=== PATIENT | female | born 1925 | race Caucasian/White ===

== ENCOUNTER 2017-02-18 07:56 | Inpatient (IN) | payer MEDICARE, BC ==
[~2017-02-18] VITALS: Ht 157.5 cm; Wt 49.6 kg
[2017-02-18] VITALS (11 sets, daily range): BP systolic 123–157; BP diastolic 68–93; PULSE 60–95; RESP 14–20; TEMP 96.4–98.1; O2SAT 91–99
[~2017-02-18 07:56] MED LIST: ALBU8I INH; BACL10TA PO; ESTR.3 PO; HYDR12.56 PO; KCL20 PO; LORTA5 PO; LYRI50CA2 PO; OXYC60TA8 PO; PROT40TA PO; ZITH250T PO
--- NOTE | 2017-02-18 08:24 | PD ---
HPI Chief Complaint: Respiratory Symptoms Time Seen by Provider: 08:11 Travel History International Travel<30 days: No Contact w/Intl Traveler<30days: No Traveled to known affect area: No History of Present Illness HPI 89-year-old female with history of COPD, CHF, on home O2 at night, brought in by her blender machine operator for evaluation of shortness of breath, "not feeling right," and restlessness. Symptoms of been going on for last 3-4 days. The patient was diagnosed with a UTI and was initially on Bactrim, however was switched to amoxicillin after her primary care physician discovered that the bacteria was resistant to Bactrim. According to the blender machine operator the patient has had little to eat over the last several days. She has been drinking plenty of fluids. Shortest of breath is at rest as well as on exertion. She denies chest pain. She is not coughing. No hemoptysis. No history of DVT or PE. Two of her friends/relatives were diagnosed with pneumonia last week, and this is a concern for the caregiver. She has not had a fever. She denies abdominal pain , nausea, vomiting, or diarrhea. Caregiver also endorses that her daughter is out of town, and this may be causing the patient some anxiety. PFSH Past Medical History Arthritis: Yes Asthma: No Autoimmune Disease: No Anxiety: No Depression: No Heart Rhythm Problems: No Cancer: No Cardiovascular Problems: Yes High Cholesterol: No Chemotherapy: No Chest Pain: No Congestive Heart Failure: Yes COPD: No Cerebrovascular Accident: No Diabetes: No Diminished Hearing: No Endocrine: No GERD: No Glaucoma: No Genitourinary: Yes Headaches: No Hepatitis: No Hiatal Hernia: No Hypertension: Yes Immune Disorder: No Kidney Stones: Yes Musculoskeletal: Yes (OSTEOPOROSIS) Neurologic: No Psychiatric: No Reproductive: No Respiratory: Yes Immunizations Current: Yes Migraines: No Myocardial Infarction: No Radiation Therapy: No Renal Failure: No Seizures: No Sickle Cell Disease: No Sleep Apnea: No Thyroid Disease: No Ulcer: No PNEUMOCCOCAL Vaccine (Year): 1 Menopausal: Yes Past Surgical History Abdominal Surgery: Yes (HYSTERECTOMY) AICD: No Appendectomy: Yes Arteriovenous Shunt: No Cardiac Surgery: No Cholecystectomy: Yes Ear Surgery: No Endocrine Surgery: No Eye Surgery: Yes (CATARACT REMOVAL) Genitourinary Surgery: Yes (KIDNEY STONE REMOVAL AND STENT ON 06/15/2010) Gynecologic Surgery: Yes Hysterectomy: Yes Insulin Pump: No Joint Replacement: Yes (RT KNEE 2004, RT HIP 2003, FEMUR ZACARIAS 2005, LEFT THUMB IMPLANT) Oral Surgery: No Pacemaker: No Thoracic Surgery: No Other Surgery: Yes (RT KNEE/LEFT FEMUR /RT HIP REPLACEMENT) Social History Alcohol Use: No Tobacco Use: No (QUIT 20 YEARS ) Substance Use: No Allergies-Medications (Allergen,Severity, Reaction): Coded Allergies: Cipro (Verified Allergy, Severe, 02/18/17) Amoxicillin (Verified Allergy, Unknown, 02/18/17) Bactrim (Verified Allergy, Unknown, 02/18/17) Levaquin (Verified Allergy, Unknown, 02/18/17) Macrobid (Verified Allergy, Unknown, 02/18/17) Reported Meds & Prescriptions Reported Meds & Active Scripts Active Reported [Cre0n] 48,000 PO AC LUNCH Breo Ellipta Inh (Fluticasone/Vilanterol) 100-25 Mcg/Act Inh 1 Puff INH DAILY Use daily at the same time. [Albuterol/Ipratrap] Lasix (Furosemide) 40 Mg Tab 40 Mg PO DAILY Amoxicillin 500 Mg Cap 500 Mg PO TID Oxycontin (Oxycodone HCl) 10 Mg Tab 10 Mg PO Q12HR Pantoprazole (Pantoprazole Sodium) 20 Mg Tab 20 Mg PO DAILY Cymbalta DR (Duloxetine HCl) 30 Mg Capdr 30 Mg PO DAILY Potassium Chloride ER (Potassium Chloride) 20 Meq Tab 20 Meq PO DAILY Calcium 500 +D (Calcium Carbonate-Cholecalciferol) 500-400 Mg-Unit Tab 1 Tab PO BID [Oxygen] PRN HS Baclofen 10 Mg Tab 10 Mg PO BID PRN Premarin (Estrogens Conjugated) 0.3 Mg Tab 0.3 Mg PO DAILY Review of Systems Except as stated in HPI: all other systems reviewed are Neg Physical Exam Narrative GENERAL: Well-developed, well-nourished, awake, alert, comfortable, no acute distress. SKIN: Focused skin assessment warm/dry. No rash. No pallor. HEAD: Atraumatic. Normocephalic. EYES: Pupils equal and round. No scleral icterus. No injection or drainage. ENT: Mucous membranes pink and moist. NECK: Trachea midline. No JVD. CARDIOVASCULAR: Regular rate and rhythm. RESPIRATORY: No accessory muscle use. Clear to auscultation. Breath sounds equal bilaterally. GASTROINTESTINAL: Abdomen soft, non-tender, nondistended. MUSCULOSKELETAL: No obvious deformities. No clubbing. No cyanosis. No edema. NEUROLOGICAL: Awake and alert. No obvious cranial nerve deficits. Motor grossly within normal limits. Normal speech. PSYCHIATRIC: Appropriate mood and affect; insight and judgment normal. Data Data Last Documented VS Vital Signs Date Time Temp Pulse Resp B/P Pulse Ox O2 Delivery O2 Flow Rate FiO2 02/18/17 09:06 70 99 Nasal Cannula 2 02/18/17 08:46 18 124/68 02/18/17 08:19 98.0 Orders Electrocardiogram (02/18/17 08:17) Ckmb (Isoenzyme) Profile (02/18/17 08:17) Complete Blood Count With Diff (02/18/17 08:17) Comprehensive Metabolic Panel (02/18/17 08:17) Magnesium (Mg) (02/18/17 08:17) Prothrombin Time / Inr (Pt) (02/18/17 08:17) Act Partial Throm Time (Ptt) (02/18/17 08:17) Troponin I (02/18/17 08:17) Chest, Single Ap (02/18/17 08:17) Ecg Monitoring (02/18/17 08:17) Iv Access Insert/Monitor (02/18/17 08:17) Oximetry (02/18/17 08:17) Sodium Chloride 0.9% Flush (Ns Flush) (02/18/17 08:30) B-Type Natriuretic Peptide (02/18/17 08:17) Urinalysis - C+S If Indicated (02/18/17 08:17) Labs Laboratory Tests Test 02/18/17 08:26 White Blood Count 13.3 TH/MM3 Red Blood Count 4.51 MIL/MM3 Hemoglobin 12.2 GM/DL Hematocrit 37.4 % Mean Corpuscular Volume 82.7 FL Mean Corpuscular Hemoglobin 27.0 PG Mean Corpuscular Hemoglobin 32.7 % Concent Red Cell Distribution Width 14.8 % Platelet Count 345 TH/MM3 Mean Platelet Volume 6.7 FL Neutrophils (%) (Auto) 86.7 % Lymphocytes (%) (Auto) 7.2 % Monocytes (%) (Auto) 3.9 % Eosinophils (%) (Auto) 0.5 % Basophils (%) (Auto) 1.7 % Neutrophils # (Auto) 11.5 TH/MM3 Lymphocytes # (Auto) 1.0 TH/MM3 Monocytes # (Auto) 0.5 TH/MM3 Eosinophils # (Auto) 0.1 TH/MM3 Basophils # (Auto) 0.2 TH/MM3 CBC Comment DIFF FINAL Differential Comment Prothrombin Time 10.2 SEC Prothromb Time International 0.9 RATIO Ratio Activated Partial 30.2 SEC Thromboplast Time Sodium Level 137 MEQ/L Potassium Level 3.7 MEQ/L Chloride Level 102 MEQ/L Carbon Dioxide Level 18.7 MEQ/L Anion Gap 16 MEQ/L Blood Urea Nitrogen 34 MG/DL Creatinine 1.90 MG/DL Estimat Glomerular Filtration 25 ML/MIN Rate Random Glucose 119 MG/DL Calcium Level 9.3 MG/DL Magnesium Level 1.8 MG/DL Total Bilirubin 0.2 MG/DL Aspartate Amino Transf 25 U/L (AST/SGOT) Alanine Aminotransferase 17 U/L (ALT/SGPT) Alkaline Phosphatase 72 U/L Total Creatine Kinase 72 U/L Troponin I LESS THAN 0.02 NG/ML B-Type Natriuretic Peptide 61 PG/ML Total Protein 8.0 GM/DL Albumin 3.7 GM/DL [facility] Medical Decision Making Medical Screen Exam Complete: Yes Emergency Medical Condition: Yes Interpretation(s) EKG: Sinus, rate 75, leftward axis, normal intervals, no acute ischemic abnormality. Differential Diagnosis Pneumonia, dehydration, metabolic abnormality, anemia, pulmonary edema, ACS, anxiety, PE less likely Narrative Course Vital signs show heart rate 78, blood pressure 123/79, pulse ox 99% on room air , oral temp of 98F. CBC shows WBC 13.3, hemoglobin 12.2, hematocrit 37.4, platelets 345, neutrophils 87%. CMP is remarkable for bicarbonate 18.7, anion gap 16, BUN 34, creatinine 1.9, GFR 25. This is worse than previous labs from 3 years ago when her creatinine was 0.7. Cardiac enzymes are negative. BNP is 61. Chest x-ray shows no acute cardiopulmonary disease. Patient and the patient's blender machine operator were made aware of all findings. Because I am not able to determine if her renal insufficiency is acute or not, the patient will be admitted for overnight observation for IV hydration. Patient's blender machine operator is relieved that the patient will be admitted for overnight observation and she is very concerned about the patient's current well-being. Case discussed with [place] hospitalist Dr. Peguero who is covering for the patient's primary care physician Dr. Crawford. The patient will be admitted to their service under Dr. Gomez. Diagnosis Primary Impression: Renal insufficiency Additional Impression: Failure to thrive in adult Admitting Information Admitting Physician Requests: Observation Gustavo Sal MD Feb 18, 2017 08:24
[2017-02-18] MEDS ORDERED: SODIUM CHLORIDE 0.9% FLUSH 10 ML FLUSH IVF PRN (08:30)
[2017-02-18] MEDS ORDERED: BACL10TA PO (08:32)
[2017-02-18] MEDS ORDERED: ESTR.3 PO (08:32)
[2017-02-18] MEDS ORDERED: OXYGEN (08:32)
[2017-02-18 08:33] LABS: AUTOMATED NEUTROPHIL # 11.5 TH/MM3 (1.8-7.7); BASOPHIL # 0.2 TH/MM3 (0-0.2); BASOPHIL % 1.7 % (0.0-2.0); EOSINOPHIL # 0.1 TH/MM3 (0-0.4); EOSINOPHIL % 0.5 % (0.0-4.0); HEMATOCRIT 37.4 % (35.0-46.0); LYMPH % 7.2 % (9.0-44.0); MEAN CELL VOLUME 82.7 FL (80.0-100.0); MEAN CORPUSCULAR HGB CONC 32.7 % (32.0-36.0); MONO % 3.9 % (0.0-8.0); NEUT % 86.7 % (16.0-70.0); PLATELET COUNT 345 TH/MM3 (150-450); RED BLOOD COUNT 4.51 MIL/MM3 (4.00-5.30); RED CELL DISTRIBUTION WIDTH 14.8 % (11.6-17.2); WHITE BLOOD COUNT 13.3 TH/MM3 (4.0-11.0)
[2017-02-18 08:36] LABS: HEMO FLAGS DIFF FINAL
[2017-02-18 08:42] LABS: CHLORIDE 102 MEQ/L (98-107); POTASSIUM 3.7 MEQ/L (3.5-5.1); SODIUM (NA) 137 MEQ/L (136-145)
[2017-02-18] MEDS ORDERED: AMOX500C PO (08:44)
[2017-02-18] MEDS ORDERED: OXYC-259 PO (08:44)
[2017-02-18] MEDS ORDERED: CALC1TAB12 PO (08:44)
[2017-02-18] MEDS ORDERED: CREON (08:44)
[2017-02-18] MEDS ORDERED: ALBUTEROL (08:44)
[2017-02-18] MEDS ORDERED: IPRATROPIUM (08:44)
[2017-02-18] MEDS ORDERED: FLUT1INH INH (08:44)
[2017-02-18] MEDS ORDERED: CYMB30CA PO (08:44)
[2017-02-18] MEDS ORDERED: POTA-163 PO (08:44)
[2017-02-18] MEDS ORDERED: PANT20TA2 PO (08:44)
[2017-02-18] MEDS ORDERED: FURO1TAB60 PO (08:44)
[2017-02-18 08:45] LABS: APTT (PATIENT) 30.2 SEC (24.3-30.1); INTERNATIONAL NORMALIZED RATIO 0.9 RATIO; PROTHROMBIN TIME - PATIENT 10.2 SEC (9.8-11.6)
[2017-02-18 08:46] LABS: ANION GAP 16 MEQ/L (5-15); BICARBONATE 18.7 MEQ/L (21.0-32.0); BLOOD UREA NITROGEN 34 MG/DL (7-18); MAGNESIUM 1.8 MG/DL (1.5-2.5)
[2017-02-18 08:49] LABS: ALT (GPT) 17 U/L (10-53); AST (GOT) 25 U/L (15-37); GLOMERULAR FILTRATION RATE 25 ML/MIN (>89)
[2017-02-18 08:50] LABS: TOTAL BILIRUBIN ADULT 0.2 MG/DL (0.2-1.0)
[2017-02-18 08:52] LABS: ALKALINE PHOSPHATASE 72 U/L (45-117)
--- NOTE | 2017-02-18 08:53 | RADHPO ---
EXAM DATE/TIME: 02/18/2017 08:20 [facility] COMPARISON: CHEST SINGLE AP, December 08, 2013, 20:05. MRI THORACIC SPINE W/O CONTRAST, December 09, 2013, 11:[address] PULMONARY ANGIOGRAM, April 01, 2014, 16:34. CHEST SINGLE AP, March 30, 2014, 10:26. CHEST SINGL E AP, April 01, 2014, 10:36. INDICATIONS : Shortness of breath. MEDICAL HISTORY : Chronic obstructive pulmonary disease. Congestive heart failure. SURGICAL HISTORY : None. ENCOUNTER: Initial ACUITY: 1 day PAIN SCORE: 0/10 LOCATION: Bilateral chest FINDINGS: Single AP view of the chest. Medial left lung apex opacity unchanged. The lungs are otherwise clear. Cardiomediastinal silhouette within normal limits. No evidence of pleural effusion or pneumothorax. CONCLUSION: No acute cardiopulmonary disease identified. Bal Driscoll MD on February 18, 2017 at 8:46 Board Certified Radiologist. This report was verified electronically.
[2017-02-18] MEDS ORDERED: PANCRELIPASE PO (09:00)
[2017-02-18 09:06] LABS: CREATINE KINASE 72 U/L (26-192)
[2017-02-18] MEDS ORDERED: SODIUM CHLOR 0.9% 1000 ML INJ 1,000 ML IV SCH (09:43)
[2017-02-18] MEDS ORDERED: NALOXONE HCL 0.4 MG/ML AMP IV PRN (11:30)
[2017-02-18] MEDS ORDERED: MAGNESIUM HYDROXIDE SUSP 30 ML CUP PO PRN (11:30)
[2017-02-18] MEDS ORDERED: ONDANSETRON HCL 4 MG/2 ML VIAL IVP PRN (11:30)
[2017-02-18] MEDS ORDERED: SODIUM CHLORIDE 0.9% FLUSH 10 ML FLUSH IV FLUSH PRN (11:30)
[2017-02-18] MEDS: SODIUM CHLOR 0.9% 1000 ML INJ 1,000 ML IV SCH (11:58)
[2017-02-18] MEDS: cefTRIAXone INJ 1,000 MG in SODIUM CHLORIDE 0.9% INJ 100 ML IV SCH (11:58)
[2017-02-18 18:24] LABS: BLOOD, URINE TRACE (NEG); GLUCOSE,URINE NEG (NEG); KETONE, URINE NEG (NEG); NITRITE,URINE NEG (NEG); PH, URINE 5.5 (5.0-8.5)
[2017-02-18 18:51] LABS: METHOD OF COLLECTION CLEAN CATCH; URINE COLOR STRAW (YELLW/STRAW)
[2017-02-18 18:52] LABS: BACTERIA, URINE FEW /hpf; COMMENT (UR) CULTURE INDICATED; CULTURE IF INDICATED CULTURE INDICATED; RBC, URINE 0-3 /hpf (0-3); SQUAMOUS EPITHELIAL CELL URINE > 8 /hpf (0-5)
[2017-02-18 18:53] LABS: COMMENT2 (UR) MUCOUS PRESENT; HYALINE CAST, URINE 0-2 /lpf (RARE)
[2017-02-18] MEDS: SODIUM CHLORIDE 0.9% FLUSH 10 ML FLUSH IV FLUSH SCH (20:44)
[2017-02-18] MEDS: ACETAMINOPHEN 325 MG TAB PO PRN (20:49)
[2017-02-19] VITALS (9 sets, daily range): BP systolic 133–165; BP diastolic 72–80; PULSE 86–96; RESP 18–20; TEMP 96.4–98.1; O2SAT 94–99
[2017-02-19] MEDS: SODIUM CHLOR 0.9% 1000 ML INJ 1,000 ML IV SCH ×4 (00:22→21:00)
[2017-02-19] MEDS: ACETAMINOPHEN 325 MG TAB PO PRN (01:21)
[2017-02-19 06:55] LABS: AUTOMATED NEUTROPHIL # 7.4 TH/MM3 (1.8-7.7); BASOPHIL # 0.1 TH/MM3 (0-0.2); BASOPHIL % 1.1 % (0.0-2.0); EOSINOPHIL # 0.1 TH/MM3 (0-0.4); EOSINOPHIL % 0.6 % (0.0-4.0); HEMO FLAGS DIFF FINAL; LYMPH % 11.8 % (9.0-44.0); LYMPHOCYTE # 1.1 TH/MM3 (1.0-4.8); MEAN CELL VOLUME 84.8 FL (80.0-100.0); MEAN CORPUSCULAR HEMOGLOBIN 27.5 PG (27.0-34.0); MEAN CORPUSCULAR HGB CONC 32.4 % (32.0-36.0); MONO % 5.9 % (0.0-8.0); NEUT % 80.6 % (16.0-70.0); PLATELET COUNT 310 TH/MM3 (150-450); RED BLOOD COUNT 4.13 MIL/MM3 (4.00-5.30); RED CELL DISTRIBUTION WIDTH 14.9 % (11.6-17.2); WHITE BLOOD COUNT 9.2 TH/MM3 (4.0-11.0)
[2017-02-19 07:03] LABS: BICARBONATE 18.7 MEQ/L (21.0-32.0)
[2017-02-19 07:28] LABS: POTASSIUM 2.9 MEQ/L (3.5-5.1)
[2017-02-19] MEDS: SODIUM CHLORIDE 0.9% FLUSH 10 ML FLUSH IV FLUSH SCH ×2 (09:00→21:00)
[2017-02-19] MEDS ORDERED: PANTOPRAZOLE SOD 20 MG DELAYED RELEASE TAB PO SCH (09:00)
[2017-02-19] MEDS ORDERED: POTASSIUM CHLORIDE 20 MEQ CONTROLLED RELEASE TAB PO ONE (09:00)
[2017-02-19] MEDS: oxyCODONE HCL 10 MG CONTROLLED RELEASE TAB PO SCH ×2 (09:37→20:57)
[2017-02-19] MEDS: POTASSIUM CHLORIDE 20 MEQ CONTROLLED RELEASE TAB PO SCH (09:37)
[2017-02-19] MEDS: DULoxetine HCl DR 30 MG CAP PO SCH (09:37)
[2017-02-19] MEDS: CALCIUM/VITAMIN D 250 MG/125 U TAB PO SCH ×2 (09:40→20:56)
[2017-02-19] MEDS: FUROSEMIDE 40 MG TAB PO SCH (09:40)
[2017-02-19] MEDS: FLUTICASONE 100 MCG/VILANTEROL 25 MCG INHALER INH SCH (09:41)
--- NOTE | 2017-02-19 10:54 | MH ---
cc: DENI RED MD DATE OF ADMISSION: 02/18/2017 CHIEF COMPLAINT Shortness of breath. HISTORY OF PRESENT ILLNESS This is a 89-year-old female with past medical-surgical history significant for COPD, CHF, she uses oxygen at home, history of arthritis, osteoporosis, history of hysterectomy, cataract removal, kidney stone removed and stent placement on 06/15/2010, right knee surgery 2004, right hip surgery 2003, femur doug placement in 2005, left thumb implant, history of depression, who came to the ER at [facility] complaining of shortness of breath and restlessness symptom has been getting worse for the last 3-4 days to the extent that she decided to come to [facility] ER. She was diagnosed with UTI and initially on Bactrim, however, she was switched to amoxicillin after her primary care physician discovered that bacteria are resistant to Bactrim. According to the neonatologist the patient had little to eat and over the last several days she has been drinking plenty of fluids, shortness of breath is at rest as well as on exertion. Denies any chest pain. Denies any coughing. No history of DVT or PE. Other than that nothing significant. PAST MEDICAL AND SURGICAL HISTORY As dictated above. SOCIAL HISTORY She denies any drinking. She smoked in the past but quit 20 years ago. She lives at home with caregiver. FAMILY HISTORY Nothing significant. ALLERGIES CIPRO, AMOXICILLIN, BACTRIM, LEVAQUIN, MACROBID. MEDICATIONS Medications include: 1. Breo Ellipta 100/25 one puff inhalation daily. 2. Lasix 40 mg p.o. daily. 3. OxyContin 10 mg p.o. q.12 hours. 4. Protonix 40 mg p.o. daily. 5. Cymbalta 30 mg daily. 6. Potassium chloride ER 20 mEq daily. 7. Calcium 500 plus vitamin D one p.o. b.i.d. 8. Baclofen 10 mg p.o. b.i.d. 9. Premarin 0.3 mg p.o. daily. REVIEW OF SYSTEMS All review of systems are negative except for cough, congestion, wheezing and shortness of breath. PHYSICAL EXAMINATION GENERAL: This is a 89-year-old female sitting on the bed, not in acute distress. VITAL SIGNS: Temperature 98.1, heart rate 92, respiration 20, blood pressure 150/79, O2 saturation 97% at 2 liters nasal cannula. HEENT: Normocephalic, atraumatic. EOMI. PERRL. Oral mucosa moist. NECK: Neck is supple. No visible thyromegaly or neck mass. Trachea central. CVS: Regular rate and rhythm. RESPIRATORY: Bilateral wheezing and bilateral decreased air entry. ABDOMEN: Soft, nontender. Bowel sounds audible. EXTREMITIES: No cyanosis or clubbing. Full range of motion of all extremities. NEURO: Awake, alert and oriented x4. No focal deficit. SKIN: Warm and dry. PSYCHE: The patient is cooperative. LABORATORY DATA Include CBC showed WBC count was 13.3, now it is 9.2, hemoglobin low 11.4, MPV 6.9 low, neutrophil percentage is 86.6 high. BMP totally unremarkable except for potassium 2.9 low, carbon dioxide 18.7 low, BUN 25, creatinine 1.30, calcium 8.1 low. Cardiac enzyme Troponin I is 0.02 x2, BNP 61, PT 10.2, INR 0.9, APTT 30.2 high. Urine examination 50-90 WBC in the urine, moderate WBC clump. Urine culture was done, report is pending. IMAGING STUDIES Chest x-ray was done and shows no acute cardiopulmonary process identified. ASSESSMENT/PLAN 1. This is a 89-year-old female who came to the ER diagnosed with shortness of breath secondary to COPD exacerbation. The patient is on Rocephin 1 gram IV daily. The patient is also on DuoNeb nebulization. Pulmonary was consulted, further recommendation per pulmonary. 2. History of COPD. Continue home medication. 3. Urinary tract infection. The patient is on Rocephin 1 gram IV daily. 4. Hypokalemia. Will replace potassium per protocol. 5. Osteoporosis. Continue home medication. 6. History of depression. Continue Cymbalta 30 mg p.o. daily. 7. DVT prophylaxis with Lovenox 30 mg subcutaneous daily. 8. GI prophylaxis with Protonix 40 mg p.o. daily. We are going to manage the patient on a daily basis and make recommendation on a daily basis. Deni Red MD EA/MASSIMO /9:47 AM /10:20 AM
[2017-02-19] MEDS: cefTRIAXone INJ 1,000 MG in SODIUM CHLORIDE 0.9% INJ 100 ML IV SCH (10:57)
[2017-02-19] MEDS: ENOXAPARIN SODIUM 30 MG/0.3 ML SYRINGE SQ SCH (10:58)
[2017-02-19] MEDS: PANTOPRAZOLE SOD 40 MG DELAYED RELEASE TAB PO SCH (11:00)
[2017-02-19] MEDS ORDERED: BACLOFEN 10 MG TAB PO PRN (13:00)
[2017-02-19] MEDS: ALPRAZolam 0.25 MG TAB PO PRN (13:37)
[2017-02-19] MEDS: LIPASE/PROTEASE/AMYLASE (24,000/76,000/120,000) CAP PO SCH ×2 (14:16→18:16)
[2017-02-19] MEDS: CHOLECALCIFEROL (VIT D3) 1000 UNIT TAB PO SCH (14:16)
[2017-02-19] MEDS: BACLOFEN 10 MG TAB PO PRN (20:56)
[2017-02-19] MEDS: MELATONIN 5 MG TAB PO PRN (20:56)
--- NOTE | 2017-02-19 23:14 | EKG ---
Date Performed: 02/18/2017 Time Performed: 08:25:00 PTAGE: 89 years EKG: Sinus rhythm Leftward axis Borderline ECG PREVIOUS TRACING : 03/30/2014 21.54 Compared to the previous tracing sinus bradycardia is no lo nger present DOCTOR: Amaury Spicer Interpretating Date/Time 02/19/2017 23:12:38
[2017-02-20] VITALS (9 sets, daily range): BP systolic 132–170; BP diastolic 64–94; PULSE 74–92; RESP 18–20; TEMP 96.1–98.1; O2SAT 95–100
[2017-02-20] MEDS: ALPRAZolam 0.25 MG TAB PO PRN ×2 (04:11→18:22)
[2017-02-20] MEDS: ACETAMINOPHEN 325 MG TAB PO PRN (04:12)
[2017-02-20 06:37] LABS: AUTOMATED NEUTROPHIL # 5.7 TH/MM3 (1.8-7.7); BASOPHIL # 0.2 TH/MM3 (0-0.2); BASOPHIL % 2.1 % (0.0-2.0); EOSINOPHIL # 0.1 TH/MM3 (0-0.4); HEMATOCRIT 32.2 % (35.0-46.0); LYMPH % 12.4 % (9.0-44.0); LYMPHOCYTE # 0.9 TH/MM3 (1.0-4.8); MEAN CELL VOLUME 84.4 FL (80.0-100.0); MEAN CORPUSCULAR HEMOGLOBIN 26.7 PG (27.0-34.0); MEAN CORPUSCULAR HGB CONC 31.6 % (32.0-36.0); MONO % 6.7 % (0.0-8.0); NEUT % 77.8 % (16.0-70.0); PLATELET COUNT 284 TH/MM3 (150-450); RED BLOOD COUNT 3.82 MIL/MM3 (4.00-5.30); RED CELL DISTRIBUTION WIDTH 15.2 % (11.6-17.2); WHITE BLOOD COUNT 7.4 TH/MM3 (4.0-11.0)
[2017-02-20 06:38] LABS: HEMO FLAGS DIFF FINAL
[2017-02-20 06:44] LABS: CHLORIDE 112 MEQ/L (98-107); SODIUM (NA) 145 MEQ/L (136-145)
[2017-02-20 07:01] LABS: ALKALINE PHOSPHATASE 54 U/L (45-117); ALT (GPT) 14 U/L (10-53); ANION GAP 12 MEQ/L (5-15); AST (GOT) 27 U/L (15-37); BICARBONATE 21.3 MEQ/L (21.0-32.0); BLOOD UREA NITROGEN 13 MG/DL (7-18); GLOMERULAR FILTRATION RATE 70 ML/MIN (>89); TOTAL BILIRUBIN ADULT 0.2 MG/DL (0.2-1.0)
--- NOTE | 2017-02-20 08:35 | HHI.PR ---
Subjective History of Present Illness Patient SOB Better have diarrhea check Stool for C- Diff toxin. d/w RADHA Chong Low Potassium will replace. Vitals/Results Intake & Output 02/19/17 02/19/17 02/20/17 15:00 23:00 07:00 Intake Total 675 ml 240 ml 360 ml Balance 675 ml 240 ml 360 ml Intake Oral 675 ml 240 ml 360 ml # Voids 8 4 3 # Bowel Movements 3 3 3 Vital Signs Vital Signs Date Time Temp Pulse Resp B/P Pulse Ox O2 Delivery O2 Flow Rate FiO2 02/20/17 05:37 158/82 02/20/17 05:12 18 02/20/17 04:00 98.1 85 18 170/94 97 02/20/17 00:00 97.0 89 18 157/89 99 02/19/17 21:57 18 02/19/17 20:30 98 Nasal Cannula 2.00 02/19/17 20:00 96.4 86 20 147/80 99 02/19/17 16:00 97.4 88 18 136/72 97 02/19/17 15:57 97 21 02/19/17 12:00 97.6 96 20 133/77 94 CBC/BMP: 02/20/17 0600 02/20/17 0620 Lab Results Laboratory Tests Test 02/20/17 02/20/17 06:00 06:20 White Blood Count 7.4 TH/MM3 Red Blood Count 3.82 MIL/MM3 Hemoglobin 10.2 GM/DL Hematocrit 32.2 % Mean Corpuscular Volume 84.4 FL Mean Corpuscular Hemoglobin 26.7 PG Mean Corpuscular Hemoglobin 31.6 % Concent Red Cell Distribution Width 15.2 % Platelet Count 284 TH/MM3 Mean Platelet Volume 6.5 FL Neutrophils (%) (Auto) 77.8 % Lymphocytes (%) (Auto) 12.4 % Monocytes (%) (Auto) 6.7 % Eosinophils (%) (Auto) 1.0 % Basophils (%) (Auto) 2.1 % Neutrophils # (Auto) 5.7 TH/MM3 Lymphocytes # (Auto) 0.9 TH/MM3 Monocytes # (Auto) 0.5 TH/MM3 Eosinophils # (Auto) 0.1 TH/MM3 Basophils # (Auto) 0.2 TH/MM3 CBC Comment DIFF FINAL Differential Comment Sodium Level 145 MEQ/L Potassium Level 3.0 MEQ/L Chloride Level 112 MEQ/L Carbon Dioxide Level 21.3 MEQ/L Anion Gap 12 MEQ/L Blood Urea Nitrogen 13 MG/DL Creatinine 0.78 MG/DL Estimat Glomerular Filtration 70 ML/MIN Rate Random Glucose 94 MG/DL Calcium Level 8.1 MG/DL Total Bilirubin 0.2 MG/DL Aspartate Amino Transf 27 U/L (AST/SGOT) Alanine Aminotransferase 14 U/L (ALT/SGPT) Alkaline Phosphatase 54 U/L Total Protein 6.2 GM/DL Albumin 2.8 GM/DL Assessment/Plan Assessment/Plan ASSESSMENT/PLAN 1. This is a 89-year-old female who came to the ER diagnosed with shortness of breath secondary to COPD exacerbation. The patient is on Rocephin 1 gram IV daily. The patient is also on DuoNeb nebulization. Pulmonary input noted, further recommendation per pulmonary. 2. History of COPD. Continue home medication. 3. Urinary tract infection. The patient is on Rocephin 1 gram IV daily. 4. Hypokalemia. Will replace potassium per protocol. 5. Osteoporosis. Continue home medication. 6. History of depression. Continue Cymbalta 30 mg p.o. daily. 7. DVT prophylaxis with Lovenox 30 mg subcutaneous daily. 8. GI prophylaxis with Protonix 40 mg p.o. daily. 9. Diarrhea check Stool for C- Diff toxin. We are going to manage the patient on a daily basis and make recommendation on a daily basis. Discussed Condition with: Patient Deni Gomez MD February 20, 2017 08:35
[2017-02-20] MEDS: FLUTICASONE 100 MCG/VILANTEROL 25 MCG INHALER INH SCH (08:49)
[2017-02-20] MEDS: LIPASE/PROTEASE/AMYLASE (24,000/76,000/120,000) CAP PO SCH ×3 (08:49→17:20)
[2017-02-20] MEDS: CHOLECALCIFEROL (VIT D3) 1000 UNIT TAB PO SCH (08:50)
[2017-02-20] MEDS: DULoxetine HCl DR 30 MG CAP PO SCH (08:50)
[2017-02-20] MEDS: oxyCODONE HCL 10 MG CONTROLLED RELEASE TAB PO SCH ×2 (08:50→20:29)
[2017-02-20] MEDS: PANTOPRAZOLE SOD 40 MG DELAYED RELEASE TAB PO SCH (08:50)
[2017-02-20] MEDS: CALCIUM/VITAMIN D 250 MG/125 U TAB PO SCH ×2 (08:51→20:28)
[2017-02-20] MEDS: FUROSEMIDE 40 MG TAB PO SCH (08:51)
[2017-02-20] MEDS: SODIUM CHLORIDE 0.9% FLUSH 10 ML FLUSH IV FLUSH SCH ×2 (08:51→20:29)
[2017-02-20] MEDS: POTASSIUM CHLORIDE 20 MEQ CONTROLLED RELEASE TAB PO SCH (08:51)
[2017-02-20] MEDS ORDERED: POTASSIUM CHLORIDE 20 MEQ CONTROLLED RELEASE TAB PO ONE (10:00)
[2017-02-20] MEDS: cefTRIAXone INJ 1,000 MG in SODIUM CHLORIDE 0.9% INJ 100 ML IV SCH (11:00)
[2017-02-20] MEDS: ENOXAPARIN SODIUM 30 MG/0.3 ML SYRINGE SQ SCH (11:00)
[2017-02-20] MEDS: SODIUM CHLOR 0.9% 1000 ML INJ 1,000 ML IV SCH ×2 (13:19→17:53)
[2017-02-20] MEDS: MELATONIN 5 MG TAB PO PRN (20:28)
[2017-02-20] MEDS: BACLOFEN 10 MG TAB PO PRN (23:44)
[2017-02-21] VITALS (8 sets, daily range): BP systolic 142–159; BP diastolic 78–93; PULSE 68–100; RESP 18–20; TEMP 96.3–98.6; O2SAT 95–100
[2017-02-21] MEDS: ACETAMINOPHEN 325 MG TAB PO PRN ×3 (01:36→18:56)
[2017-02-21 06:45] LABS: HEMATOCRIT 34.4 % (35.0-46.0); MEAN CELL VOLUME 84.7 FL (80.0-100.0); MEAN CORPUSCULAR HEMOGLOBIN 27.5 PG (27.0-34.0); MEAN CORPUSCULAR HGB CONC 32.5 % (32.0-36.0); PLATELET COUNT 277 TH/MM3 (150-450); RED BLOOD COUNT 4.06 MIL/MM3 (4.00-5.30); RED CELL DISTRIBUTION WIDTH 15.2 % (11.6-17.2); WHITE BLOOD COUNT 8.8 TH/MM3 (4.0-11.0)
[2017-02-21 06:54] LABS: CHLORIDE 113 MEQ/L (98-107); POTASSIUM 3.3 MEQ/L (3.5-5.1); SODIUM (NA) 143 MEQ/L (136-145)
[2017-02-21 06:59] LABS: ANION GAP 11 MEQ/L (5-15); BLOOD UREA NITROGEN 7 MG/DL (7-18)
[2017-02-21 07:02] LABS: ALT (GPT) 18 U/L (10-53); AST (GOT) 25 U/L (15-37); GLOMERULAR FILTRATION RATE 61 ML/MIN (>89)
[2017-02-21 07:03] LABS: TOTAL BILIRUBIN ADULT 0.3 MG/DL (0.2-1.0)
[2017-02-21 07:05] LABS: ALKALINE PHOSPHATASE 58 U/L (45-117)
[2017-02-21 07:09] LABS: HEMO FLAGS AUTO DIFF
[2017-02-21 07:39] LABS: BANDS 1 % (0-6); EOSINOPHILS 3 % (0-4); PLATELET ESTIMATE SMEAR NORMAL (NORMAL); PLATELET MORPHOLOGY NORMAL (NORMAL); POLYS (SEG NEUTROPHILS) 78 % (16-70); SCAN/DIFF FINAL DIFF MANUAL; WBC DIFF SAMPLE 100
--- NOTE | 2017-02-21 08:00 | HHI.PR ---
Subjective History of Present Illness Patient SOB Better diarrhea..better. checked Stool for C- Diff toxin...negative. d/w RN JAZMINE. Low Potassium will replace. Vitals/Results Intake & Output 02/20/17 02/20/17 02/21/17 15:00 23:00 07:00 Intake Total 965 ml 240 ml Output Total 200 ml Balance 765 ml 240 ml Intake Oral 965 ml 240 ml Output Urine Total 200 ml # Voids 8 5 # Bowel Movements 5 5 Vital Signs Vital Signs Date Time Temp Pulse Resp B/P Pulse Ox O2 Delivery O2 Flow Rate FiO2 02/21/17 04:00 98.1 77 18 146/78 100 02/21/17 02:36 18 02/21/17 00:00 98.0 86 18 157/86 98 02/20/17 21:29 18 02/20/17 20:00 74 02/20/17 20:00 96.1 81 18 148/79 98 02/20/17 19:20 98 Nasal Cannula 2.00 02/20/17 16:00 97.2 79 20 132/64 95 02/20/17 12:00 97.6 76 20 133/73 100 02/20/17 10:07 96 21 CBC/BMP: 02/21/17 0630 02/21/17 0630 Lab Results Laboratory Tests Test 02/21/17 06:30 White Blood Count 8.8 TH/MM3 Red Blood Count 4.06 MIL/MM3 Hemoglobin 11.2 GM/DL Hematocrit 34.4 % Mean Corpuscular Volume 84.7 FL Mean Corpuscular Hemoglobin 27.5 PG Mean Corpuscular Hemoglobin 32.5 % Concent Red Cell Distribution Width 15.2 % Platelet Count 277 TH/MM3 Mean Platelet Volume 6.6 FL Neutrophils (%) (Auto) % Lymphocytes (%) (Auto) % Monocytes (%) (Auto) % Eosinophils (%) (Auto) % Basophils (%) (Auto) % Neutrophils # (Auto) TH/MM3 Lymphocytes # (Auto) TH/MM3 Monocytes # (Auto) TH/MM3 Eosinophils # (Auto) TH/MM3 Basophils # (Auto) TH/MM3 CBC Comment AUTO DIFF Differential Total Cells 100 Counted Neutrophils % (Manual) 78 % Band Neutrophils % 1 % Lymphocytes % 11 % Monocytes % 7 % Eosinophils % 3 % Neutrophils # (Manual) 7.0 TH/MM3 Differential Comment FINAL DIFF MANUAL Platelet Estimate NORMAL Platelet Morphology Comment NORMAL Sodium Level 143 MEQ/L Potassium Level 3.3 MEQ/L Chloride Level 113 MEQ/L Carbon Dioxide Level 19.0 MEQ/L Anion Gap 11 MEQ/L Blood Urea Nitrogen 7 MG/DL Creatinine 0.88 MG/DL Estimat Glomerular Filtration 61 ML/MIN Rate Random Glucose 149 MG/DL Calcium Level 7.5 MG/DL Total Bilirubin 0.3 MG/DL Aspartate Amino Transf 25 U/L (AST/SGOT) Alanine Aminotransferase 18 U/L (ALT/SGPT) Alkaline Phosphatase 58 U/L Total Protein 6.7 GM/DL Albumin 2.9 GM/DL Microbiology Microbiology 02/20/17 Stool Occult Blood (GIUSEPPE) - Final, Complete HEMOCCULT NEGATIVE Assessment/Plan Assessment/Plan ASSESSMENT/PLAN 1. This is a 89-year-old female who came to the ER diagnosed with shortness of breath secondary to COPD exacerbation. The patient is on Rocephin 1 gram IV daily. The patient is also on DuoNeb nebulization. Pulmonary input noted, further recommendation per pulmonary. 2. History of COPD. Continue home medication. 3. Urinary tract infection. The patient is on Rocephin 1 gram IV daily... recheck UA. 4. Hypokalemia. Will replace potassium per protocol. 5. Osteoporosis. Continue home medication. 6. History of depression. Continue Cymbalta 30 mg p.o. daily. 7. DVT prophylaxis with Lovenox 30 mg subcutaneous daily. 8. GI prophylaxis with Protonix 40 mg p.o. daily. 9. Diarrhea checked Stool for C- Diff toxin...negative ...better. We are going to manage the patient on a daily basis and make recommendation on a daily basis. Discussed Condition with: Patient Deni Gomez MD February 21, 2017 08:00
[2017-02-21] MEDS: SODIUM CHLORIDE 0.9% FLUSH 10 ML FLUSH IV FLUSH SCH ×2 (09:00→21:40)
[2017-02-21] MEDS: SODIUM CHLOR 0.9% 1000 ML INJ 1,000 ML IV SCH (09:19)
[2017-02-21 09:22] LABS: C. DIFF EPI 027 PRESUMPTIVE NEGATIVE (NEGATIVE); C. DIFF TOXIN PCR NEGATIVE (NEGATIVE)
[2017-02-21] MEDS: PANTOPRAZOLE SOD 40 MG DELAYED RELEASE TAB PO SCH (10:30)
[2017-02-21] MEDS: CALCIUM/VITAMIN D 250 MG/125 U TAB PO SCH ×2 (10:31→21:38)
[2017-02-21] MEDS: FUROSEMIDE 40 MG TAB PO SCH (10:31)
[2017-02-21] MEDS: oxyCODONE HCL 10 MG CONTROLLED RELEASE TAB PO SCH ×2 (10:31→21:39)
[2017-02-21] MEDS: CHOLECALCIFEROL (VIT D3) 1000 UNIT TAB PO SCH (10:31)
[2017-02-21] MEDS: POTASSIUM CHLORIDE 20 MEQ CONTROLLED RELEASE TAB PO SCH (10:31)
[2017-02-21] MEDS: DULoxetine HCl DR 30 MG CAP PO SCH (10:31)
[2017-02-21] MEDS: FLUTICASONE 100 MCG/VILANTEROL 25 MCG INHALER INH SCH (10:32)
[2017-02-21] MEDS: LIPASE/PROTEASE/AMYLASE (24,000/76,000/120,000) CAP PO SCH ×3 (10:32→17:18)
[2017-02-21] MEDS: ENOXAPARIN SODIUM 30 MG/0.3 ML SYRINGE SQ SCH (10:32)
[2017-02-21] MEDS: cefTRIAXone INJ 1,000 MG in SODIUM CHLORIDE 0.9% INJ 100 ML IV SCH (10:36)
[2017-02-21] MEDS ORDERED: POTASSIUM CHLORIDE 10 MEQ CONTROLLED RELEASE TAB PO ONE (12:45)
[2017-02-21] MEDS: ALPRAZolam 0.25 MG TAB PO PRN ×2 (15:35→21:38)
[2017-02-21] MEDS: BACLOFEN 10 MG TAB PO PRN (17:18)
[2017-02-21] MEDS: LOPERAMIDE HCL 2 MG CAP PO PRN (21:39)
[2017-02-22] VITALS (9 sets, daily range): BP systolic 140–174; BP diastolic 75–89; PULSE 79–95; RESP 16–20; TEMP 96.5–98.4; O2SAT 93–100
[2017-02-22] MEDS: ACETAMINOPHEN 325 MG TAB PO PRN ×2 (03:59→15:31)
[2017-02-22] MEDS: LOPERAMIDE HCL 2 MG CAP PO PRN (04:19)
[2017-02-22 06:46] LABS: AUTOMATED NEUTROPHIL # 7.5 TH/MM3 (1.8-7.7); BASOPHIL # 0.1 TH/MM3 (0-0.2); BASOPHIL % 0.8 % (0.0-2.0); EOSINOPHIL # 0.2 TH/MM3 (0-0.4); EOSINOPHIL % 2.4 % (0.0-4.0); HEMATOCRIT 32.8 % (35.0-46.0); HEMO FLAGS DIFF FINAL; LYMPH % 11.6 % (9.0-44.0); LYMPHOCYTE # 1.1 TH/MM3 (1.0-4.8); MEAN CELL VOLUME 84.9 FL (80.0-100.0); MEAN CORPUSCULAR HEMOGLOBIN 26.9 PG (27.0-34.0); MEAN CORPUSCULAR HGB CONC 31.6 % (32.0-36.0); MONO % 6.3 % (0.0-8.0); NEUT % 78.9 % (16.0-70.0); PLATELET COUNT 292 TH/MM3 (150-450); RED BLOOD COUNT 3.87 MIL/MM3 (4.00-5.30); RED CELL DISTRIBUTION WIDTH 15.8 % (11.6-17.2); WHITE BLOOD COUNT 9.5 TH/MM3 (4.0-11.0)
[2017-02-22 06:53] LABS: CHLORIDE 113 MEQ/L (98-107); POTASSIUM 3.6 MEQ/L (3.5-5.1); SODIUM (NA) 146 MEQ/L (136-145)
[2017-02-22 06:57] LABS: ANION GAP 10 MEQ/L (5-15); BICARBONATE 23.2 MEQ/L (21.0-32.0)
[2017-02-22 06:58] LABS: BLOOD UREA NITROGEN 8 MG/DL (7-18)
[2017-02-22 07:00] LABS: ALT (GPT) 16 U/L (10-53)
[2017-02-22 07:01] LABS: AST (GOT) 22 U/L (15-37); GLOMERULAR FILTRATION RATE 63 ML/MIN (>89)
[2017-02-22 07:02] LABS: TOTAL BILIRUBIN ADULT 0.3 MG/DL (0.2-1.0)
[2017-02-22 07:03] LABS: ALKALINE PHOSPHATASE 55 U/L (45-117)
[2017-02-22] MEDS: FUROSEMIDE 40 MG TAB PO SCH (08:50)
[2017-02-22] MEDS: PANTOPRAZOLE SOD 40 MG DELAYED RELEASE TAB PO SCH (08:50)
[2017-02-22] MEDS: LIPASE/PROTEASE/AMYLASE (24,000/76,000/120,000) CAP PO SCH ×3 (08:50→18:39)
[2017-02-22] MEDS: POTASSIUM CHLORIDE 20 MEQ CONTROLLED RELEASE TAB PO SCH (08:50)
[2017-02-22] MEDS: CHOLECALCIFEROL (VIT D3) 1000 UNIT TAB PO SCH (08:51)
[2017-02-22] MEDS: CALCIUM/VITAMIN D 250 MG/125 U TAB PO SCH ×2 (08:51→20:21)
[2017-02-22] MEDS: oxyCODONE HCL 10 MG CONTROLLED RELEASE TAB PO SCH ×2 (08:51→20:21)
[2017-02-22] MEDS: SODIUM CHLORIDE 0.9% FLUSH 10 ML FLUSH IV FLUSH SCH ×2 (08:52→21:00)
[2017-02-22] MEDS: FLUTICASONE 100 MCG/VILANTEROL 25 MCG INHALER INH SCH (08:53)
[2017-02-22] MEDS: DULoxetine HCl DR 30 MG CAP PO SCH (09:00)
[2017-02-22] MEDS: cefTRIAXone INJ 1,000 MG in SODIUM CHLORIDE 0.9% INJ 100 ML IV SCH (11:48)
[2017-02-22] MEDS: ENOXAPARIN SODIUM 30 MG/0.3 ML SYRINGE SQ SCH (11:49)
[2017-02-22] MEDS: ALPRAZolam 0.25 MG TAB PO PRN (12:10)
--- NOTE | 2017-02-22 15:25 | HHI.PR ---
Subjective History of Present Illness Patient SOB Better diarrhea..better. checked Stool for C- Diff toxin...negative. Low Potassium resolved. Possible discharge tomorrow. Urine culture grow liliam on Diflucan. Vitals/Results Intake & Output 02/21/17 02/21/17 02/22/17 15:00 23:00 07:00 Intake Total 120 ml 240 ml Balance 120 ml 240 ml Intake Oral 120 ml 240 ml # Voids 5 3 # Bowel Movements 5 3 Vital Signs Vital Signs Date Time Temp Pulse Resp B/P Pulse Ox O2 Delivery O2 Flow Rate FiO2 02/22/17 10:00 18 02/22/17 08:24 100 Nasal Cannula 2.00 02/22/17 08:00 96.8 90 19 174/88 93 02/22/17 04:00 96.8 79 20 167/86 99 02/22/17 00:00 96.5 79 18 152/86 99 02/21/17 20:43 95 Nasal Cannula 2.00 02/21/17 20:00 92 02/21/17 20:00 96.9 100 20 142/78 98 02/21/17 16:29 96.3 68 18 158/88 100 CBC/BMP: 02/22/17 0610 02/22/17 0610 Lab Results Laboratory Tests Test 02/22/17 06:10 White Blood Count 9.5 TH/MM3 Red Blood Count 3.87 MIL/MM3 Hemoglobin 10.4 GM/DL Hematocrit 32.8 % Mean Corpuscular Volume 84.9 FL Mean Corpuscular Hemoglobin 26.9 PG Mean Corpuscular Hemoglobin 31.6 % Concent Red Cell Distribution Width 15.8 % Platelet Count 292 TH/MM3 Mean Platelet Volume 6.5 FL Neutrophils (%) (Auto) 78.9 % Lymphocytes (%) (Auto) 11.6 % Monocytes (%) (Auto) 6.3 % Eosinophils (%) (Auto) 2.4 % Basophils (%) (Auto) 0.8 % Neutrophils # (Auto) 7.5 TH/MM3 Lymphocytes # (Auto) 1.1 TH/MM3 Monocytes # (Auto) 0.6 TH/MM3 Eosinophils # (Auto) 0.2 TH/MM3 Basophils # (Auto) 0.1 TH/MM3 CBC Comment DIFF FINAL Differential Comment Sodium Level 146 MEQ/L Potassium Level 3.6 MEQ/L Chloride Level 113 MEQ/L Carbon Dioxide Level 23.2 MEQ/L Anion Gap 10 MEQ/L Blood Urea Nitrogen 8 MG/DL Creatinine 0.85 MG/DL Estimat Glomerular Filtration 63 ML/MIN Rate Random Glucose 93 MG/DL Calcium Level 7.9 MG/DL Total Bilirubin 0.3 MG/DL Aspartate Amino Transf 22 U/L (AST/SGOT) Alanine Aminotransferase 16 U/L (ALT/SGPT) Alkaline Phosphatase 55 U/L Total Protein 6.5 GM/DL Albumin 2.9 GM/DL Assessment/Plan Assessment/Plan ASSESSMENT/PLAN 1. This is a 89-year-old female who came to the ER diagnosed with shortness of breath secondary to COPD exacerbation. The patient is on Rocephin 1 gram IV daily. The patient is also on DuoNeb nebulization. Pulmonary input noted, further recommendation per pulmonary. 2. History of COPD. Continue home medication. 3. Urinary tract infection. The patient is on Rocephin 1 gram IV daily... Urine culture grow liliam on Diflucan. 4. Hypokalemia. Will replace potassium per protocol. 5. Osteoporosis. Continue home medication. 6. History of depression. Continue Cymbalta 30 mg p.o. daily. 7. DVT prophylaxis with Lovenox 30 mg subcutaneous daily. 8. GI prophylaxis with Protonix 40 mg p.o. daily. 9. Diarrhea checked Stool for C- Diff toxin...negative ...better. We are going to manage the patient on a daily basis and make recommendation on a daily basis. Discussed Condition with: Patient Deni Gomez MD February 22, 2017 15:25
[2017-02-22] MEDS: BACLOFEN 10 MG TAB PO PRN (18:39)
[2017-02-22] MEDS: MELATONIN 5 MG TAB PO PRN (20:20)
[2017-02-23] VITALS: BP 134/72; PULSE 96; RESP 18; TEMP 96.1; O2SAT 97
[2017-02-23] MEDS: ALPRAZolam 0.25 MG TAB PO PRN (00:12)
[2017-02-23 04:00] VITALS: BP 122/65; PULSE 104; RESP 16; TEMP 98.7; O2SAT 82
[2017-02-23 08:00] VITALS: BP 131/76; PULSE 85; RESP 19; TEMP 97.7; O2SAT 94
[2017-02-23 08:14] VITALS: O2SAT 98
--- NOTE | 2017-02-23 08:23 | HHI.PR ---
Subjective History of Present Illness Patient SOB Better diarrhea..better. checked Stool for C- Diff toxin...negative. Low Potassium resolved. Urine culture grow liliam on Diflucan.Patient wants to go home today. Ok to discharge home today. Vitals/Results Intake & Output 02/22/17 02/22/17 02/23/17 15:00 23:00 07:00 Intake Total 600 ml 0 ml 0 ml Output Total 300 ml Balance 300 ml 0 ml 0 ml Intake Oral 500 ml IV Total 100 ml 0 ml 0 ml Output Urine Total 300 ml # Voids 6 # Bowel Movements 1 Vital Signs Vital Signs Date Time Temp Pulse Resp B/P Pulse Ox O2 Delivery O2 Flow Rate FiO2 02/23/17 08:14 98 Nasal Cannula 2.00 02/23/17 04:00 98.7 104 16 122/65 82 02/23/17 00:00 96.1 96 18 134/72 97 02/22/17 20:30 94 02/22/17 20:00 98.2 91 16 142/85 97 02/22/17 19:55 96 Nasal Cannula 2.00 02/22/17 16:00 97.0 94 20 153/89 97 02/22/17 12:00 98.4 95 20 140/75 98 02/22/17 10:00 18 02/22/17 08:24 100 Nasal Cannula 2.00 CBC/BMP: 02/22/17 0610 02/22/17 0610 Assessment/Plan Assessment/Plan ASSESSMENT/PLAN 1. This is a 89-year-old female who came to the ER diagnosed with shortness of breath secondary to COPD exacerbation. The patient is on Rocephin 1 gram IV daily. The patient is also on DuoNeb nebulization. Pulmonary input noted, further recommendation per pulmonary. 2. History of COPD. Continue home medication. 3. Urinary tract infection. The patient is on Rocephin 1 gram IV daily... Urine culture grow liliam on Diflucan. 4. Hypokalemia. Will replace potassium per protocol. 5. Osteoporosis. Continue home medication. 6. History of depression. Continue Cymbalta 30 mg p.o. daily. 7. DVT prophylaxis with Lovenox 30 mg subcutaneous daily. 8. GI prophylaxis with Protonix 40 mg p.o. daily. 9. Diarrhea checked Stool for C- Diff toxin...negative ...better. Patient wants to go home today. Ok to discharge home today. f/u with PCP/Pulmonary 1 week. Discussed Condition with: Patient Deni Gomez MD February 23, 2017 08:23
[2017-02-23] MEDS ORDERED: CEFT500T3 PO (08:26)
[2017-02-23] MEDS ORDERED: ALPR.25 PO (08:26)
[2017-02-23] MEDS ORDERED: DIFL100T PO (08:26)
[2017-02-23] MEDS: CALCIUM/VITAMIN D 250 MG/125 U TAB PO SCH (09:00)
[2017-02-23] MEDS: SODIUM CHLORIDE 0.9% FLUSH 10 ML FLUSH IV FLUSH SCH (10:02)
[2017-02-23] MEDS: FLUTICASONE 100 MCG/VILANTEROL 25 MCG INHALER INH SCH (10:02)
[2017-02-23] MEDS: LIPASE/PROTEASE/AMYLASE (24,000/76,000/120,000) CAP PO SCH (10:03)
[2017-02-23] MEDS: FUROSEMIDE 40 MG TAB PO SCH (10:04)
[2017-02-23] MEDS: CHOLECALCIFEROL (VIT D3) 1000 UNIT TAB PO SCH (10:04)
[2017-02-23] MEDS: DULoxetine HCl DR 30 MG CAP PO SCH (10:04)
[2017-02-23] MEDS: ENOXAPARIN SODIUM 30 MG/0.3 ML SYRINGE SQ SCH (10:05)
[2017-02-23] MEDS: oxyCODONE HCL 10 MG CONTROLLED RELEASE TAB PO SCH (10:05)
[2017-02-23] MEDS: ACETAMINOPHEN 325 MG TAB PO PRN (10:05)
[2017-02-23] MEDS: POTASSIUM CHLORIDE 20 MEQ CONTROLLED RELEASE TAB PO SCH (10:11)
[2017-02-23] MEDS: PANTOPRAZOLE SOD 40 MG DELAYED RELEASE TAB PO SCH (10:11)
[2017-02-23 11:17] VITALS: RESP 18
--- NOTE | 2017-02-24 17:29 | MD ---
cc: DENI RED MD ADMISSION DATE: 02/21/2017 DISCHARGE DATE: 02/23/2017 DISPOSITION: Okay to discharge the patient home. CONDITION AT THE TIME OF DISCHARGE: Satisfactory. DISCHARGE ACTIVITY: As tolerated. DISCHARGE DIET: Cardiac diet. ALLERGIES: 1. AMOXICILLIN. 2. BACTRIM. 3. CIPRO. 4. LEVAQUIN. 5. MACROBID. DISCHARGE MEDICATIONS: 1. Xanax 0.25 milligrams twice a day PRN anxiety. 2. Ceftin 500 milligrams p.o. twice a day for seven days. 3. Diflucan 100 milligrams p.o. daily for seven days. 4. Baclofen 10 milligrams p.o. twice a day PRN muscle spasm. 5. Calcium carbonate 500 / 500 units p.o. twice a day. 6. Cymbalta 30 milligrams p.o. daily. 7. Brio 100 / 25 one puff inhalation daily. 8. Furosemide 40 milligrams p.o. daily. 9. Oxycodone ER 10 milligrams p.o. q. 12 hours. 10. Protonix 20 milligrams p.o. daily. 11. Potassium chloride ER 20 milliequivalents p.o. daily. 12. 4800 milligrams p.o. a.c. lunch. The patient was advised to follow with his primary care physician and pulmonary in one week. ADMITTING DIAGNOSIS: 1. Shortness of breath. 2. COPD exacerbation. DISCHARGE DIAGNOSIS: 1. COPD exacerbation resolved. The patient was given Rocephin IV and also given DuoNeb nebulization. The patient seen by pulmonary. The patient remained stable. The patient was discharged in satisfactory condition. 2. History of COPD. 3. Urinary tract infection. The patient was given Rocephin but urine culture grew out Samantha and she was started on Diflucan for one week. 4. Hypokalemia which was replaced. 5. History of osteoporosis. 6. History of depression. 7. Diarrhea. Stool diff was checked, which was negative. The diarrhea resolved at the time of discharge. HOSPITAL COURSE: This is an 89-year-old female admitted with shortness of breath and diagnosed with COPD exacerbation. Chest x-ray was done and showed nothing acute. The patient remained stable. No acute event happened. The patient had leukocytosis, which has resolved. The patient had anemia with a hemoglobin of 10.4. The patient had low total protein of 6.2 and albumin low at 2.8. The patient had a calcium of 7.9. The patient had low potassium which was replaced and at the time of discharge potassium was 3.6. The patient's urinalysis showed a urinary tract infection. Urine culture grew out Samantha albicans. The patient was given Diflucan. The patient's stool occult blood test was negative. Further details in the medical record. Deni Red MD EA/DAGMAR /8:38 AM /5:17 PM
== END 2017-02-23 11:49 | disposition home or self-care (01) | DRG 191 ==
LOC: PHED 07:56 → PHEDA 09:34 → PH3A 10:18 → OBSVTOIN 02-21 12:39
PROVIDERS: ADMIT Family Medicine; ATTEND Family Medicine
DX: J44.1 Chronic obstructive pulmonary disease with (acute) exacerbation (principal); N39.0 Urinary tract infection, site not specified; I50.9 Heart failure, unspecified; I11.0 Hypertensive heart disease with heart failure; E87.6 Hypokalemia; M81.0 Age-related osteoporosis without current pathological fracture; D64.9 Anemia, unspecified; N28.9 Disorder of kidney and ureter, unspecified; F41.9 Anxiety disorder, unspecified; R62.7 Adult failure to thrive; Z87.442 Personal history of urinary calculi; Z87.891 Personal history of nicotine dependence; Z90.710 Acquired absence of both cervix and uterus; Z99.81 Dependence on supplemental oxygen; R19.7 Diarrhea, unspecified
CPT/HCPCS: 71010; 80048; 80053; 81001; 82272; 82550; 83735; 83880; 84484; 85007; 85025; 85027; 85610; 85730; 87086; 87493; 93005; G0378; J0696; J1650; J2405; J7030